=== PATIENT | female | born 1950 | race Caucasian/White ===

== ENCOUNTER 2016-12-25 07:30 | Inpatient (IN) | payer BC ==
--- NOTE | 2016-12-18 22:06 | HP ---
PREOPERATIVE HISTORY AND PHYSICAL: DATE OF SURGERY/ADMISSION: 12/25/16 DATE OF OFFICE VISIT: 12/17/16 ATTENDING SURGEON: Dr. Jaci Ibarra. PROCEDURE: Right total hip replacement. CHIEF COMPLAINT: Right hip pain. HISTORY OF PRESENT ILLNESS: Kiana Bartholomew is a 66-year-old female who has had longstanding history of right hip pain due to severe osteoarthritis of the right hip. She has tried conservative treatments including anti-inflammatories , cortisone injections, and physical therapy and has failed conservative treatment. She would like to proceed with total hip replacement with Dr. Ibarra. This is scheduled for 12/25/16. PAST MEDICAL HISTORY: Hypertension, hyperlipidemia, GERD, restless leg syndrome , fibromyalgia, diabetes type 2, which is diet controlled. PAST SURGICAL HISTORY: Right total knee replacement, appendectomy, hysterectomy , right carpal tunnel release, left bunionectomy, left trigger thumb release, left ring mass excision. CURRENT MEDICATIONS: 1. Advil. 2. Aspirin. 3. Lisinopril. 4. Omeprazole. 5. Ropinirole. 6. Tramadol. 7. Amoxicillin. ALLERGIES: DEMEROL, AUGMENTIN, and NITROGLYCERIN. FAMILY HISTORY: Cancer, heart disease, and diabetes. SOCIAL HISTORY: She works as a medical office receptionist assistant. She is . She smokes 1/2 pack per day, but is trying to quit. She drinks alcohol rarely and denies recreational drug use. REVIEW OF SYSTEMS: A 14-point review of systems was reviewed with the patient and was positive for high blood pressure, positive for GERD, positive for fibromyalgia and diabetes. Negative for known anesthesia problems, negative for history of DVT and negative for MRSA, hep C, and HIV. PHYSICAL EXAMINATION GENERAL: Well-developed, well-nourished 66-year-old female in no acute distress. VITAL SIGNS: Height is 50.5, weight 148 pounds, blood pressure is 122/79, respirations 14, temperature is 98, BMI of 40.8. HEENT: Normocephalic, atraumatic. NECK: Supple with no palpable lymph nodes. PULMONARY: Lungs clear to auscultation bilaterally. No wheezes, rales, or rhonchi. CARDIO: Regular rate and rhythm. S1, S2. No murmurs, rubs, or gallops. No edema. ABDOMEN: Soft, nontender, nondistended. Positive bowel sounds throughout. NEUROLOGICAL: Alert and oriented x3. Cranial nerves II through XII grossly intact. Sensation intact to light touch. MUSCULOSKELETAL: Right lower extremity: Skin is intact over the right knee and leg. There are no abrasions or open wounds. No point tenderness over the greater trochanter. No palpable mass. No lymph node. She has hip flexion from the 100 degrees to 5 degrees from neutral and has no external rotation even passively; 30 degrees of external rotation. Significant groin pain and lateral hip pain with rotation. Ankle dorsiflexion and plantar flexion 5/5 strength and 2+ palpable DP pulses. No hyperreflexia. STUDIES: X-rays were obtained, 11/17/16, which did show arthritis of the right hip. IMPRESSION: Right hip osteoarthritis. PLAN: The patient is scheduled to undergo a right total hip replacement on 08/[address] Ibarra. She is to return to the office in 10 to 14 days postop for followup and suture removal. A prescription for Percocet, Coumadin, and Colace were provided for postoperative pain management, postoperative DVT prophylaxis, and postoperative constipation. BILL RYAN [id number]/[facility] #: [id number] KATELYN
[~2016-12-25 07:30] MED LIST: Clindamycin 900 MG IVPREMIX(* 900 MG/50 ML SDV IV ONE; Famotidine IV* 10 MG/ML 2 ML (20 mg) IV ONE; Famotidine IV* 10 MG/ML 2 ML (20 mg) ONE; Levalbuterol 0.63MG/3ML NEB INH ONE; Levalbuterol 1.25MG/0.5ML NEB ONE; Metoclopramide TAB* 10 MG ONE; Metoclopramide TAB* 10 MG PO ONE
[2016-12-25] MEDS ORDERED: Phenylephrine INJ* 10 MG/ML 1 ML VIAL (10 MG) ONE (10:13)
[2016-12-25] MEDS ORDERED: Midazolam* 1 MG/ML 5 ML VIAL (5 MG) ONE (10:29)
[2016-12-25] MEDS ORDERED: KETAMINE HCL* 50 MG/ML 10 ML VIAL ONE (10:29)
[2016-12-25] MEDS ORDERED: Ondansetron INJ* 2 MG/ML VIAL ONE (10:29)
[2016-12-25] MEDS ORDERED: Propofol* 10 MG/ML 20 ML BTL IV PUSH ONE (10:29)
[2016-12-25] MEDS ORDERED: Dexamethasone IV* 4 MG/ML 1 ML (4 MG) ONE (10:29)
[2016-12-25] MEDS ORDERED: Bupivacaine 0.5% SDV PF* 30 ML VIAL ONE (10:29)
[2016-12-25] MEDS ORDERED: fentaNYL* 50 MCG/ML 2 ML VIAL (100 MCG VIAL) ONE (10:29)
[2016-12-25] MEDS ORDERED: Lidocaine 2% PF * 5 ML VIAL ONE (10:29)
[2016-12-25] MEDS ORDERED: Ketorolac INJ* 30 MG/ML 1 ML VIAL ONE (10:29)
[2016-12-25] MEDS ORDERED: Morphine PF AMP (0.5MG/ML)* 5 MG/10 ML AMP ONE (10:30)
[2016-12-25] MEDS ORDERED: fentaNYL* 50 MCG/ML 2 ML VIAL (100 MCG VIAL) IV PRN (11:07)
[2016-12-25] MEDS ORDERED: Phenylephrine INJ* 50 MG in NS 0.9% 250 ML* 245 ML IV PRN (11:07)
[2016-12-25] MEDS ORDERED: Ondansetron INJ* 2 MG/ML VIAL IV PRN ×2 (11:07→11:09)
[2016-12-25] MEDS ORDERED: EPHEDrine (Pressors)* 50 MG/ML VIAL IV PUSH PRN (11:09)
[2016-12-25] MEDS ORDERED: oxyCODONE/Acetamin 5/325 MG* TAB PO PRN ×2 (11:09)
[2016-12-25] MEDS ORDERED: Ketorolac INJ* 15 MG/ML 1 ML VIAL IV PRN (11:09)
[2016-12-25] MEDS ORDERED: diPHENhydraMINE IV* 50 MG/ML 1 ml VIAL (BENADRYL) IV PRN (11:09)
[2016-12-25] MEDS ORDERED: Lactated Ringers 500 ml BAG* 500 ML IV PRN (11:09)
[2016-12-25] MEDS ORDERED: Acetaminophen TAB* 325 MG PO PRN (11:10)
[2016-12-25] MEDS ORDERED: Morphine INJ* 4 MG/ML 1 ML SYRINGE IV PRN (11:10)
[2016-12-25] MEDS ORDERED: Bisacodyl SUPP* 10 MG SUPP PR PRN (11:10)
[2016-12-25] MEDS ORDERED: Polyethylene Glycol 3350* 17 GM PACKET PO PRN (11:10)
[2016-12-25] MEDS ORDERED: Naloxone* 0.4 MG/ML 1 ML VIAL IV PRN (11:15)
[2016-12-25] MEDS ORDERED: Albuterol HFA INHALER* 8 gm MDI INH PRN (11:16)
--- NOTE | 2016-12-25 11:56 | RAD ---
HISTORY: Right total hip replacement COMPARISONS: November 17, 2016 VIEWS: 1, intraoperative view of the pelvis during right hip arthroplasty, performed at 10:09 AM FINDINGS: Single portable intraoperative view of the pelvis during right hip arthroplasty. A right hip prosthesis is noted, with a temporary femoral sizing component. IMPRESSION: LIMITED PORTABLE INTRAOPERATIVE VIEW OF THE PELVIS DURING HIP ARTHROPLASTY
[2016-12-25] MEDS ORDERED: Ropivacaine* 300 MG in NS 0.9% 250 ML* 240 ML EPIDURAL SCH (12:00)
[2016-12-25] MEDS ORDERED: ceFAZolin VIAL(*) 1 GM in NS 0.9% 50 ML* 50 ML IVPB SCH (12:00)
--- NOTE | 2016-12-25 13:58 | RAD ---
Indication: Right hip total replacement. 2 views of the right hip and an AP view the pelvis demonstrates right hip replacement in satisfactory position. Sacroiliac joints and left hip joint is intact. IMPRESSION: Right hip replacement in satisfactory position.
[2016-12-25] MEDS ORDERED: Omeprazole CAP* 20 MG PO PRN (16:51)
[2016-12-25] MEDS ORDERED: Warfarin TAB(*) 6 MG PO ONE (17:00)
[2016-12-25] MEDS: Clindamycin 600 MG IVPREMIX(* 600 MG/50 ML SDV IV SCH (18:05)
[2016-12-25] MEDS: Docusate CAP* 100 MG PO SCH (19:56)
[2016-12-25] MEDS: Magnesium Hydroxide LIQ* 30 ML UDC PO SCH (19:57)
--- NOTE | 2016-12-25 23:24 | CONS ---
CONSULTATION REPORT: DATE OF ADMISSION: 12/25/16 DATE OF CONSULTATION: 12/25/16 PRIMARY CARE PROVIDER: Dr. Casey Cassidy. ATTENDING PHYSICIAN: Bartolo Huston MD (dictated by Christopher Issa NP) PHYSICIAN REQUESTING CONSULTATION: Jaci Ibarra MD REASON FOR CONSULTATION: Co-medical management in a patient with a history of hypertension, hyperlipidemia and diabetes mellitus. HISTORY OF PRESENT ILLNESS: Ms. Bartholomew is a 66-year-old female with a past medical history significant for hypertension, hyperlipidemia, GERD, restless leg syndrome, fibromyalgia and type 2 diabetes mellitus that is diet controlled who presents to the hospital with severe osteoarthritis and is status post an elective right total hip arthroplasty with Dr. Ibarra, today. The patient states that leading up to surgery, she has been in a good state of health with the exception of right hip pain. The patient also reports several weeks ago getting over an upper respiratory infection, which we completed a course of antibiotics for. The patient denies any fever, chills, chest pain, shortness of breath, urinary symptoms, nausea, vomiting, or diarrhea. Hospitalists were asked to assist with the management of this patient during her postoperative period. PAST MEDICAL HISTORY: 1. Hypertension. 2. Hyperlipidemia. 3. GERD. 4. Restless leg syndrome. 5. Fibromyalgia. 6. Diabetes mellitus type 2, diet controlled. 7. Diverticulosis. 8. Vitamin D deficiency. PAST SURGICAL HISTORY: 1. Status post right total knee arthroplasty. 2. Status post appendectomy. 3. Status post hysterectomy. 4. Status post right carpal tunnel release. 5. Status post left bunionectomy. 6. Status post left trigger thumb release. 7. Status post left ring finger mass excision. 8. Status post bilateral oophorectomy. HOME MEDICATIONS: Include: 1. Aspirin 81 mg oral daily, the patient stopped approximately 2 weeks ago. 2. Lisinopril 30 mg oral daily. 3. Omeprazole 20 mg oral twice daily as needed for indigestion. 4. Requip 1 mg oral daily at bedtime. 5. Tramadol 50 mg t.i.d. to 4 times a day as needed daily for pain. 6. Lunesta 1 mg oral daily at bedtime as needed for insomnia. 7. Albuterol HFA 1 to 2 puffs inhalation every 4 to 6 hours as needed for shortness of breath. 8. Vitamin D 1000 units oral daily. ALLERGIES: DEMEROL, causes itching. NITROGLYCERIN, causes facial swelling. AUGMENTIN causes GI upset. FAMILY HISTORY: The patient's father had a history of myocardial infarction x2 and lung cancer. The patient has no family history of diabetes mellitus. SOCIAL HISTORY: The patient is a current smoker, smoking less than a half a pack a day. She reports restarting smoking approximately 1 year ago. Prior to that, she had quit for 8 years and has a 86-oykh-znol 1 pack a day history. The patient rarely drinks alcohol. She denies recreational drug use. She works as a senior qa analyst and is . She lives with her , Truong Bartholomew , who will be her surrogate decision maker in the event that she is unable to make decisions for herself. REVIEW OF SYSTEMS: I performed a 14-point review of systems. All the pertinent positives and negatives are mentioned in the history of present illness. The remaining review of systems are negative. PHYSICAL EXAMINATION: Vital Signs: Temperature 98.1, heart rate 63, respiratory rate 16, O2 sat 97% on room air, blood pressure 127/60. Appearance : The patient is alert, pleasant, and appears to be in no acute distress. HEENT: Normocephalic, atraumatic. Pupils are equal and reactive to light. Extraocular movements are intact. Cardiovascular: Regular rate and rhythm. S1 , S2 are crisp. There are no murmurs, rubs, or gallops heard. Extremities: There is no lower extremity edema. DP and PT pulses are 2+ and symmetric. Respiratory: There is no accessory muscle use and the lungs are clear to auscultation bilateral. Abdomen is soft, nontender, and nondistended. There are bowel sounds present x4. Musculoskeletal: There is no clubbing or cyanosis noted. The patient exhibits good strength in all extremities. She is able to dorsi and plantarflex bilateral. Skin: There is a dressing on the patient's right hip that is clean, dry and intact. Neurological: Cranial nerves II through XII are grossly intact. The patient moves all extremities. Psychological: The patient is calm and cooperative. DIAGNOSTIC STUDIES/LABORATORY DATA: Preoperative data from 12/05/16: Sodium 143, potassium 4.4, chloride 104, CO2 29, BUN 16, creatinine 0.7, and glucose 151. Hemoglobin A1c 7.2. EKG shows a sinus rhythm with a rate of 76. Urinalysis from 12/12/16 is negative. A chest x-ray from 12/17/16 shows radiologist's impression: No active cardiopulmonary disease. 1. Pelvis x-ray from today, radiologist's impression: Limited portable intraoperative view of the pelvis during hip arthroplasty. 2. Hip and pelvis x-ray from today. Right hip replacement in satisfactory position. IMPRESSION: Ms. Bartholomew is a 66-year-old female with past medical history significant for hypertension, hyperlipidemia, gastroesophageal reflux disease, restless leg syndrome, fibromyalgia, type 2 diabetes mellitus, and severe osteoarthritis of the right hip who presented to the hospital today for an elective right total hip arthroplasty with Dr. Ibarra. Hospitalist were asked to co-manage this patient during her hospital stay. ASSESSMENT/PLAN: 1. Status post right total hip arthroplasty. Postop day. Management per Orthopedic Surgery. The patient currently has Duramorph spinal and an epidural infusing for pain management. Pain management will be per Anesthesia until those are discontinued and have worn off. Then pain management will be per Orthopedic Surgery. The patient's H and H will be trended. She will have physical therapy and occupational therapy. The patient will have her Bartlett catheter in place until her epidural is removed and then this should be removed. 2. Diabetes mellitus. The patient is diet controlled at home. She will be on a consistent carbohydrate diet. We will monitor fingersticks with meals and start lispro sliding scale if necessary. The patient had a hemoglobin A1c checked on 12/05/16, that was 7.2. 3. Hypertension. At this time, the patient's pressures have been in the 90s to one-teens, although the last one was 127. For now during the perioperative period, we will hold the patient's lisinopril and most likely resume in the morning if her blood pressure allows. 4. Hyperlipidemia. The patient is currently not on medications. She has tried several in the past and developed muscle cramping. I will defer this to her primary care provider to discuss with her and restart after surgery. 5. Restless leg syndrome. The patient continued on her home Requip. 6. Gastroesophageal reflux disease. The patient will be continued on omeprazole as needed. 7. Fibromyalgia. We will hold the patient's tramadol for now and allow pain management to be per Orthopedic Surgery. 8. Fluids, electrolytes, and nutrition. The patient will be on a consistent carbohydrate diet. 9. DVT prophylaxis. Management per Orthopedic Surgery. The patient will be on Lovenox bridged to warfarin. 10. Code status. Full code. 11. Disposition. Inpatient with disposition per Orthopedic Surgery. TIME SPENT: The time for this consultation was 60 minutes, and greater than half of that was spent with the patient discussing medications, past medical history, in the events leading to her arrival at the hospital today. The case has been reviewed with the attending, Dr. Huston, who agrees with the plan of care. Reviewed by CHRISTOPHER ISSA, MARYSE-C 12/26/16 [id number] CC: Dr. Cassidy; Jaci Ibarra MD * [id number]/[facility] #: [id number] MTDD
[2016-12-26] MEDS: Clindamycin 600 MG IVPREMIX(* 600 MG/50 ML SDV IV SCH ×2 (02:17→09:57)
[2016-12-26] MEDS ORDERED: oxyCODONE TAB* 5 MG TAB PO PRN (06:00)
[2016-12-26] MEDS ORDERED: oxyCODONE/Acetamin 5/325 MG* TAB PO PRN (06:00)
[2016-12-26] MEDS ORDERED: Ondansetron TAB* 4 MG PO PRN (06:00)
[2016-12-26] MEDS ORDERED: diPHENhydraMINE IV* 50 MG/ML 1 ml VIAL (BENADRYL) IV PRN (06:00)
[2016-12-26] MEDS ORDERED: Zolpidem TAB* 5 MG PO PRN (06:00)
[2016-12-26 06:25] LABS: Hematocrit 31 % (35-47); Hemoglobin 10.3 g/dl (12.0-16.0)
[2016-12-26 06:38] LABS: BUN/Creatinine Ratio 17.8 (8-20); Calcium 8.6 mg/dL (8.6-10.3); EGFR African American 102.6 (>60); EGFR Non-African American 79.8 (>60); Potassium 4.3 mmol/L (3.5-5.0)
--- NOTE | 2016-12-26 07:37 | PN ---
Progress Note - Progress Note SOAP: Subjective: Pt. is alert, pain is controlled, poor sleep last night. Objective: RLE - dressing c/d/i. thigh soft, distally min edema with +df/pf, full sens lt , 2+dp pulse. Vital Signs: Temp Pulse Resp BP Pulse Ox 98.1 F 70 20 103/56 100 12/26/16 04:20 12/26/16 04:20 12/26/16 04:20 12/26/16 04:20 12/26/16 04:20 Laboratory Results - last 24 hr 12/25/16 12/25/16 12/26/16 08:01 16:45 05:42 Hgb 10.3 L Hct 31 L INR (Anticoag Therapy) Sodium Potassium Chloride Carbon Dioxide Anion Gap BUN Creatinine Est GFR ( Amer) Est GFR (Non-Af Amer) BUN/Creatinine Ratio Glucose POC Glucose (mg/dL) 142 H 238 H Calcium 12/26/16 12/26/16 05:42 05:42 Hgb Hct INR (Anticoag Therapy) 1.17 H Sodium 137 Potassium 4.3 Chloride 106 Carbon Dioxide 27 Anion Gap 4 BUN 13 Creatinine 0.73 Est GFR ( Amer) 102.6 Est GFR (Non-Af Amer) 79.8 BUN/Creatinine Ratio 17.8 Glucose 177 H POC Glucose (mg/dL) Calcium 8.6 Assessment: 66 yo F pod 1 s/p RTHA Plan: wbat with post hip precautions 6 mg coumadin tonight with lovenox bridge today pt/ot plan d/c to home 12/27
[2016-12-26] MEDS: oxyCODONE/Acetamin 5/325 MG* TAB PO PRN ×4 (08:14→20:46)
[2016-12-26] MEDS ORDERED: Lisinopril TAB* 10 MG PO SCH (09:00)
[2016-12-26] MEDS: Vitamin THERAPEUTIC TAB PO SCH (09:22)
[2016-12-26] MEDS: Magnesium Hydroxide LIQ* 30 ML UDC PO SCH ×2 (09:22→20:44)
[2016-12-26] MEDS: Docusate CAP* 100 MG PO SCH ×2 (09:23→20:46)
--- NOTE | 2016-12-26 09:56 | OP ---
DATE OF OPERATION: 12/25/16 - ROOM #342 DATE OF : 50 SURGEON: Jaci Ibarra MD PERINATAL NURSE: BILL Meadows. Ms. Puri did help throughout the procedure with preparation of the leg, wound retraction, manipulation of the hip, and wound closure. ANESTHESIOLOGIST: Dr. Garza. ANESTHESIA: Spinal. PRE-OP DIAGNOSIS: Severe end-stage degenerative osteoarthritis of the right hip joint. POST-OP DIAGNOSIS: Severe end-stage degenerative osteoarthritis of the right hip joint. OPERATIVE PROCEDURE: Right total hip arthroplasty. INDICATIONS: Ms. Bartholomew is a 66-year-old female with one year of increasingly severe right hip pain. Radiographs showed advanced arthritis of the hip joint. She failed conservative treatment with anti-inflammatories, pain medications, physical therapy, and ambulatory assistive devices. Due to continued pain and decreased quality of life, the patient elected to undergo right total hip arthroplasty. Informed consent was obtained from the patient. She understood the risks of the surgery included, but were not limited to bleeding, infection, damage to nearby structures, continued pain, need for further surgery, intraoperative fracture, nerve palsy, hardware failure or loosening, dislocation , leg length discrepancy, stroke, heart attack, blood clot, and . She wished to proceed. COMPLICATIONS: None. ESTIMATED BLOOD LOSS: 300 cc. SPECIMEN: Femoral head and acetabular reaming sent to Pathology. HARDWARE USED: This is Shy uncemented total hip hardware. For the cup, a Trident hemispherical acetabular shell, 48D, one 16-mm and one 20-mm screw were used. For the insert, a 36D Trident X3 0-degree polyethylene insert. For the stem, an Accolade TMZF, size 2 with a 132-degree neck. For the head, a Biolox delta ceramic V40 femoral head 36, -5. INTRAOPERATIVE FINDINGS: Intraoperatively, the patient was noted to have a shallow dysplastic acetabulum with extreme loss of cartilage. Femoral head and neck also had complete loss of cartilage with osteophyte formation. DESCRIPTION OF PROCEDURE: Ms. Bartholomew was identified in the preanesthesia unit. Her right lower extremity was marked as the correct operative side. Informed consent was signed and placed in the chart. The patient was taken to the operating room and placed under spinal anesthesia without difficulty. A Bartlett catheter was placed. The patient was placed in the left lateral decubitus position on the peg board with all bony prominences well padded. Right lower extremity was prepped and draped in the usual sterile fashion. Preop time-out was made to correctly identify the patient's side and site. Appropriate perioperative antibiotics were given within 1 hour of incision. A 12-cm posterior hip incision was made with a 10 blade and carried down to the lateral fascial layer. The lateral fascial layer was incised in line with the skin incision. A Charnley retractor was placed. The piriformis and conjoint tendons were identified. These were elevated off the posterolateral femur and tagged with two #5 Ethibond's. Next, electrocautery was used to make a standard posterolateral capsular flap and this was tagged with two #5 Ethibond' s. The hip was carefully dislocated. Lesser troch to the center of the femoral head measured 45 mm. Oscillating saw was used to make the appropriate femoral neck cut. The femoral head was sent to Pathology. The femur was carefully retracted anteriorly. After appropriate placement of retractor, the acetabulum was easily visualized. A long-handled knife was used to remove any remaining labrum from around the acetabular rim. Complete loss of cartilage was noted with osteophyte formation. The acetabulum was sequentially reamed up to a size 47. A good bleeding bone bed was obtained. The acetabulum was noted to be shallow and dysplastic. A 48D Trident hemispherical shell was chosen and impacted into the acetabulum. Excellent stability was obtained. Appropriate abduction angle and anteversion were noted. One 16-mm screw and one 20-mm screw were placed in the superior posterior quadrant for added stability. A 36D Trident X3 0-degree polyethylene liner was chosen. This was impacted into the acetabulum without difficulty. Stability of the liner was checked and rechecked and noted to be stable. Next, attention was turned to preparation of the femur. A canal finder was used to enter the proximal femur. The proximal femur was sequentially broached up to a size 2. The trial had good stability as well as anteversion. A 132- neck trial was chosen with a 36 +0 femoral head trial. Lesser troch to the center of the femoral head measured 52 mm. Therefore, a -5 femoral head was chosen. This had approximately 46 mm lesser troch to the center of the femoral head measurement. The hip was carefully reduced and taken through a range of motion. The hip was stable in all positions. Leg lengths were deemed to be appropriate. There was good soft tissue tension. The hip was carefully dislocated. All trials were carefully removed. Final implant chosen was a size 2 Accolade TMZF with a 132-degree neck. This was impacted into the femur without difficulty. Good stability was obtained. A 36 -5 ceramic V40 Biolox delta femoral head was chosen as the final implant. This was impacted on to the femoral neck without difficulty. Lesser troch to center of the femoral head measurement was approximately 47 mm. The hip was reduced and taken through a range of motion. The hip was stable in all positions. There was good soft tissue tension. The hip was copiously irrigated with sterile saline. Previously tagged tendons and capsule were reapproximated to the posterolateral femur through 2 trochanteric drill holes. The lateral fascial layer was closed using interrupted #1 Vicryl's. The rest of the incision was closed in a layered fashion using 0 and 2-0 Vicryl's. Skin was closed using running 3-0 Monocryl and Dermabond. Sterile Adaptic, 4x4s, and paper tapes were placed over this. The patient's anesthesia was reversed without difficulty. She was taken to the PACU in stable condition. Intended weight bearing will be weightbearing as tolerated with posterior hip precautions. Intended DVT prophylaxis will be Coumadin with a Lovenox bridge. [id number]/[facility] #: [id number] KATELYN
[2016-12-26] MEDS: Enoxaparin(*) 30 MG/0.3 ML SYR SUBCUT SCH (12:24)
[2016-12-26] MEDS: Morphine INJ* 4 MG/ML 1 ML SYRINGE IV PRN (13:42)
[2016-12-26] MEDS: Ondansetron INJ* 2 MG/ML VIAL IV PRN (13:45)
--- NOTE | 2016-12-26 15:22 | PN ---
Subjective Date of Service: 12/26/16 Interval History: Patient seen and examined at bedside. Pt states that she feels well with the exception of pain in her right hip. Denies fever, chills, shortness of breath, chest discomfort, N/V/D. Pt states that she is urinating without difficulty since urinary catheter was removed. Pt states that she had a small BM this morning, but continues to feel "gassy". Family History: Unchanged from Admission Social History: Unchanged from Admission Past Medical History: Unchanged from Admission Objective Active Medications: Acetaminophen (Tylenol Tab*) 650 mg PO Q4H PRN Reason: pain, fever Albuterol (Ventolin Hfa Inhaler*) 1 puff INH BID PRN Reason: SOB/WHEEZING Bisacodyl (Dulcolax Supp*) 10 mg ND DAILY PRN Reason: constipation Diphenhydramine HCl (Benadryl Iv*) 12.5 mg IV Q6H PRN Reason: PRURITIS Docusate Sodium (Colace Cap*) 100 mg PO BID RAMIN Enoxaparin Sodium (Lovenox(*)) 30 mg SUBCUT Q24H RAMIN Lactated Ringer's (Lactated Ringers 1000 Ml Bag*) 1,000 mls @ 100 mls/hr IV PER RATE RAMIN Lactulose (Lactulose*) 30 ml PO Q6H PRN Reason: constipation Magnesium Hydroxide (Milk Of Magnesia Liq*) 30 ml PO BID RAMIN Morphine Sulfate (Morphine Inj (Syringe)*) 4 mg IV Q2H PRN Reason: PAIN Multivitamins (Theragran Tab*) 1 tab PO DAILY RAMIN Omeprazole (Prilosec Cap*) 20 mg PO BID PRN Reason: INDIGESTION Ondansetron HCl (Zofran Inj*) 4 mg IV Q6H PRN Reason: nausea Ondansetron HCl (Zofran Tab*) 4 mg PO Q6H PRN Reason: NAUSEA Oxycodone HCl (Roxycodone Tab*) 10 mg PO Q4H PRN Reason: PAIN - MODERATE TO SEVERE Oxycodone/Acetaminophen (Percocet 5/325 Tab*) 1 tab PO Q4H PRN Reason: PAIN - MILD Oxycodone/Acetaminophen (Percocet 5/325 Tab*) 2 tab PO Q4H PRN Reason: PAIN - MODERATE Pharmacy Profile Note (Coumadin Daily Reminder*) 1 note FOLLOW UP [facility] Polyethylene Glycol/Electrolytes (Miralax*) 17 gm PO DAILY PRN Reason: Constipation Warfarin Sodium (Coumadin Tab(*)) 6 mg PO ONCE@[facility] Stop: 12/26/16 17:01 Zolpidem Tartrate (Ambien Tab*) 5 mg PO QPM PRN; Protocol Reason: INSOMNIA Vital Signs 12/25/16 12/25/16 12/25/16 15:27 15:48 16:10 Temperature 98.1 F Pulse Rate 63 Respiratory 18 17 16 Rate Blood Pressure 127/60 (mmHg) O2 Sat by Pulse 97 Oximetry 12/25/16 12/25/16 12/25/16 16:27 17:01 19:09 Temperature 98.8 F 97.4 F Pulse Rate 69 72 Respiratory 16 18 16 Rate Blood Pressure 132/61 93/50 (mmHg) O2 Sat by Pulse 98 94 Oximetry 12/25/16 12/25/16 12/25/16 20:15 21:06 22:05 Temperature 98.0 F 98.3 F Pulse Rate 68 68 Respiratory 18 16 18 Rate Blood Pressure 105/54 101/54 (mmHg) O2 Sat by Pulse 97 94 Oximetry 12/25/16 12/26/16 12/26/16 23:04 00:00 00:10 Temperature 97.8 F Pulse Rate 71 Respiratory 18 18 Rate Blood Pressure 101/49 (mmHg) O2 Sat by Pulse 98 98 Oximetry 12/26/16 12/26/16 12/26/16 01:00 03:00 04:20 Temperature 98.1 F Pulse Rate 70 Respiratory 18 20 20 Rate Blood Pressure 103/56 (mmHg) O2 Sat by Pulse 100 Oximetry 12/26/16 12/26/16 12/26/16 07:43 08:00 08:14 Temperature 97.7 F Pulse Rate 64 Respiratory 15 16 18 Rate Blood Pressure 104/55 (mmHg) O2 Sat by Pulse 98 Oximetry 12/26/16 12/26/16 12/26/16 10:14 11:18 12:23 Temperature 97.9 F Pulse Rate 65 Respiratory 18 16 18 Rate Blood Pressure 108/53 (mmHg) O2 Sat by Pulse 100 Oximetry Oxygen Devices in Use Now: None Appearance: NAD, laying in bed Eyes: No Scleral Icterus Respiratory: Symmetrical Chest Expansion and Respiratory Effort, Clear to Auscultation Cardiovascular: NL Sounds; No Murmurs; No JVD, RRR Abdominal: NL Sounds; No Tenderness; No Distention Extremities: No Edema Skin: No Rash or Ulcers, - - Dressing to right hip clean, dry and intact Neurological: Alert and Oriented x 3, NL Muscle Strength and Tone Lines/Tubes/Other Access: Clean, Dry and Intact Peripheral IV - site benign Nutrition: Taking PO's Result Diagrams: 12/26/16 05:42 12/26/16 05:42 Assess/Plan/Problems-Billing Assessment: Ms. Bartholomew is a 66 yo female with PMH significant for HTN, HLD, GERD, RLS, fibromyalgia, DM, and severe osteoarthritis of the right hip who presented to the hospital for an elective right total hip arthroplasty with Dr. Ibarra on . - Patient Problems (1) Status post total replacement of right hip Code(s): Z96.641 - PRESENCE OF RIGHT ARTIFICIAL HIP JOINT SNOMED Code(s): 329179812608 Comment: - POD #1 - Management per Ortho - Continue PT/OT - Continue pain management and bowel regime - Trend (2) History of hypertension Code(s): Z86.79 - PERSONAL HISTORY OF OTHER DISEASES OF THE CIRCULATORY SYSTEM SNOMED Code(s): 973811416 Comment: - BP continues to be soft - Continue to hold lisinopril (3) GERD (gastroesophageal reflux disease) Code(s): K21.9 - GASTRO-ESOPHAGEAL REFLUX DISEASE WITHOUT ESOPHAGITIS SNOMED Code(s): 771010050 Comment: - Continue PRN omeprazole (4) Fibromyalgia Code(s): M79.7 - FIBROMYALGIA SNOMED Code(s): 390572713 Comment: - Pain management per Ortho (5) History of restless legs syndrome Code(s): Z86.69 - PERSONAL HISTORY OF DIS OF THE NERVOUS SYS AND SENSE ORGANS SNOMED Code(s): 393715385 Comment: - Continue Requip (6) Hx of diabetes mellitus Code(s): Z86.39 - PERSONAL HISTORY OF ENDO, NUTRITIONAL AND METABOLIC DISEASE SNOMED Code(s): 584311063 Comment: - Glucose 130-230's - Pt is diet controlled at home - Will start Lispro SS if evening glucose is high (7) DVT prophylaxis Code(s): WKU3476 - SNOMED Code(s): 763737948 Comment: - Lovenox bridge to warfarin per ortho (8) Full code status Code(s): Z78.9 - OTHER SPECIFIED HEALTH STATUS SNOMED Code(s): 999304753 Status and Disposition: Inpatient. Disposition per Orthopedics. Possible discharge to home in the AM.
[2016-12-26] MEDS ORDERED: Warfarin TAB(*) 6 MG PO SCH (17:00)
[2016-12-27] MEDS: oxyCODONE/Acetamin 5/325 MG* TAB PO PRN ×2 (00:58→08:52)
[2016-12-27 06:37] LABS: Hematocrit 29 % (35-47); Hemoglobin 9.8 g/dl (12.0-16.0); Mean Platelet Volume 9 um3 (7.4-10.4)
--- NOTE | 2016-12-27 07:45 | PN ---
Subjective Date of Service: 12/27/16 Interval History: Patient seen and examined at bedside. Pt states that she is feeling well this morning and her pain is controlled. Denies fever, chills, shortness of breath, chest discomfort, N/V/D. Family History: Unchanged from Admission Social History: Unchanged from Admission Past Medical History: Unchanged from Admission Objective Active Medications: Acetaminophen (Tylenol Tab*) 650 mg PO Q4H PRN Reason: pain, fever Albuterol (Ventolin Hfa Inhaler*) 1 puff INH BID PRN Reason: SOB/WHEEZING Bisacodyl (Dulcolax Supp*) 10 mg WA DAILY PRN Reason: constipation Diphenhydramine HCl (Benadryl Iv*) 12.5 mg IV Q6H PRN Reason: PRURITIS Docusate Sodium (Colace Cap*) 100 mg PO BID RAMIN Enoxaparin Sodium (Lovenox(*)) 30 mg SUBCUT Q24H RAMIN Lactated Ringer's (Lactated Ringers 1000 Ml Bag*) 1,000 mls @ 100 mls/hr IV PER RATE RAMIN Lactulose (Lactulose*) 30 ml PO Q6H PRN Reason: constipation Magnesium Hydroxide (Milk Of Magnesia Liq*) 30 ml PO BID RAMIN Morphine Sulfate (Morphine Inj (Syringe)*) 4 mg IV Q2H PRN Reason: PAIN Multivitamins (Theragran Tab*) 1 tab PO DAILY RAMIN Omeprazole (Prilosec Cap*) 20 mg PO BID PRN Reason: INDIGESTION Ondansetron HCl (Zofran Inj*) 4 mg IV Q6H PRN Reason: nausea Ondansetron HCl (Zofran Tab*) 4 mg PO Q6H PRN Reason: NAUSEA Oxycodone HCl (Roxycodone Tab*) 10 mg PO Q4H PRN Reason: PAIN - MODERATE TO SEVERE Oxycodone/Acetaminophen (Percocet 5/325 Tab*) 1 tab PO Q4H PRN Reason: PAIN - MILD Oxycodone/Acetaminophen (Percocet 5/325 Tab*) 2 tab PO Q4H PRN Reason: PAIN - MODERATE Pharmacy Profile Note (Coumadin Daily Reminder*) 1 note FOLLOW UP [facility]00 [facility] Polyethylene Glycol/Electrolytes (Miralax*) 17 gm PO DAILY PRN Reason: Constipation Zolpidem Tartrate (Ambien Tab*) 5 mg PO QPM PRN; Protocol Reason: INSOMNIA Vital Signs 12/26/16 12/26/16 12/26/16 07:43 08:00 08:14 Temperature 97.7 F Pulse Rate 64 Respiratory 15 16 18 Rate Blood Pressure 104/55 (mmHg) O2 Sat by Pulse 98 Oximetry 12/26/16 12/26/16 12/26/16 10:14 11:18 12:23 Temperature 97.9 F Pulse Rate 65 Respiratory 18 16 18 Rate Blood Pressure 108/53 (mmHg) O2 Sat by Pulse 100 Oximetry 12/26/16 12/26/16 12/26/16 15:18 16:39 18:39 Temperature 98.4 F Pulse Rate 66 Respiratory 16 18 18 Rate Blood Pressure 117/57 (mmHg) O2 Sat by Pulse 98 Oximetry 12/26/16 12/26/16 12/26/16 19:46 20:00 20:45 Temperature 98.1 F Pulse Rate 66 Respiratory 16 18 20 Rate Blood Pressure 147/64 (mmHg) O2 Sat by Pulse 100 Oximetry 12/26/16 12/26/16 12/26/16 20:46 22:46 23:29 Temperature 98.2 F Pulse Rate 83 Respiratory 20 18 16 Rate Blood Pressure 142/54 (mmHg) O2 Sat by Pulse 99 Oximetry 12/27/16 12/27/16 00:58 03:25 Temperature 99.5 F Pulse Rate 82 Respiratory 20 16 Rate Blood Pressure 107/49 (mmHg) O2 Sat by Pulse 96 Oximetry Oxygen Devices in Use Now: None Appearance: NAD, sitting up in bed Respiratory: Symmetrical Chest Expansion and Respiratory Effort, Clear to Auscultation Cardiovascular: NL Sounds; No Murmurs; No JVD, RRR Abdominal: NL Sounds; No Tenderness; No Distention Extremities: No Edema Skin: No Rash or Ulcers, - - Dressing to right hip clean, dry and intact. Neurological: Alert and Oriented x 3, NL Muscle Strength and Tone Lines/Tubes/Other Access: Clean, Dry and Intact Peripheral IV - site benign Nutrition: Taking PO's Result Diagrams: 12/27/16 06:18 12/26/16 05:42 Assess/Plan/Problems-Billing Assessment: Ms. Bartholomew is a 66 yo female with PMH significant for HTN, HLD, GERD, RLS, fibromyalgia, DM, and severe osteoarthritis of the right hip who presented to the hospital for an elective right total hip arthroplasty with Dr. Ibarra on . - Patient Problems (1) Status post total replacement of right hip Code(s): Z96.641 - PRESENCE OF RIGHT ARTIFICIAL HIP JOINT SNOMED Code(s): 343564239338 Comment: - POD #2 - Management per Ortho - HH stable - Continue PT/OT - Continue pain management and bowel regime (2) History of hypertension Code(s): Z86.79 - PERSONAL HISTORY OF OTHER DISEASES OF THE CIRCULATORY SYSTEM SNOMED Code(s): 661734889 Comment: - BP continues to be soft at times - Continue to hold lisinopril, will resume when able (3) GERD (gastroesophageal reflux disease) Code(s): K21.9 - GASTRO-ESOPHAGEAL REFLUX DISEASE WITHOUT ESOPHAGITIS SNOMED Code(s): 074361049 Comment: - Continue PRN omeprazole (4) Fibromyalgia Code(s): M79.7 - FIBROMYALGIA SNOMED Code(s): 067782200 Comment: - Pain management per Ortho (5) History of restless legs syndrome Code(s): Z86.69 - PERSONAL HISTORY OF DIS OF THE NERVOUS SYS AND SENSE ORGANS SNOMED Code(s): 125608444 Comment: - Continue Requip (6) Hx of diabetes mellitus Code(s): Z86.39 - PERSONAL HISTORY OF ENDO, NUTRITIONAL AND METABOLIC DISEASE SNOMED Code(s): 342522812 Comment: - Glucose 130-230's - Pt is diet controlled at home (7) DVT prophylaxis Code(s): LRZ3631 - SNOMED Code(s): 840261255 Comment: - Lovenox bridge to warfarin per ortho (8) Full code status Code(s): Z78.9 - OTHER SPECIFIED HEALTH STATUS SNOMED Code(s): 105622807 Status and Disposition: Inpatient. Disposition per Orthopedics. Possible discharge to home today.
--- NOTE | 2016-12-27 08:34 | PN ---
Progress Note - Progress Note SOAP: Subjective: Pt. is alert, pain controlled. Objective: RLE - dressing changed, inc c/d/i. distally nvi. Vital Signs: Temp Pulse Resp BP Pulse Ox 99.5 F 82 16 107/49 96 12/27/16 03:25 12/27/16 03:25 12/27/16 03:25 12/27/16 03:25 12/27/16 03:25 Laboratory Results - last 24 hr 12/26/16 12/26/16 12/26/16 08:07 12:01 17:41 Hgb Hct Plt Count MPV INR (Anticoag Therapy) POC Glucose (mg/dL) 139 H 233 H 180 H 12/27/16 12/27/16 06:18 06:18 Hgb 9.8 L Hct 29 L Plt Count 143 L MPV 9 INR (Anticoag Therapy) 1.83 H POC Glucose (mg/dL) Assessment: 66 yo F pod 2 s/p RTHA Plan: wbat with post hip precautions pt/ot hold coumadin tonight, 4 mg tomorrow, recheck on thursday plan d/c to home today.
[2016-12-27] MEDS: Vitamin THERAPEUTIC TAB PO SCH (08:52)
[2016-12-27] MEDS: Docusate CAP* 100 MG PO SCH (08:52)
[2016-12-27] MEDS: Morphine INJ* 4 MG/ML 1 ML SYRINGE IV PRN (08:58)
[2016-12-27] MEDS: Ondansetron INJ* 2 MG/ML VIAL IV PRN (08:58)
[2016-12-27] MEDS: Magnesium Hydroxide LIQ* 30 ML UDC PO SCH (09:50)
[2016-12-27 11:36] VITALS: BP 122/59
[2016-12-27] MEDS: Enoxaparin(*) 30 MG/0.3 ML SYR SUBCUT SCH (12:29)
--- NOTE | 2016-12-28 04:32 | DS ---
DISCHARGE SUMMARY: DATE OF ADMISSION: 12/25/16 DATE OF DISCHARGE: 12/27/16 PROVIDER: Dr. Jaci Ibarra. (DICTATED BY BILL BENITES) ADMITTING DIAGNOSIS: Status post right total hip arthroplasty for treatment of severe right hip osteoarthritis. SECONDARY DIAGNOSES: 1. Hypertension. 2. Hyperlipidemia. 3. Gastroesophageal reflux disease. 4. Restless leg syndrome. 5. Fibromyalgia. 6. Diabetes type 2, which is diet controlled. CONSULTATIONS: Physical Therapy, Occupational Therapy, and Medicine. HISTORY OF PRESENT ILLNESS: Ms. Bartholomew is a 66-year-old female who presents to the clinic for ongoing right hip pain due to severe osteoarthritis. She has failed conservative treatment to including anti-inflammatories, cortisone injections, and physical therapy, therefore agreed to undergo a right total hip arthroplasty with Dr. Ibarra on 12/25/16. HOSPITAL COURSE: Ms. Bartholomew was admitted to [facility] on 12/25/16. She underwent a right total hip arthroplasty. Postoperatively, she recovered on the short-stay surgical unit. Postop day 1, the [place] was removed and she was able to urinate on her own. She was advanced to a regular diet without difficulty and pain was controlled with oral Percocet. She was restarted on home medications. Labs and vitals remained stable. She was able to weight bear as tolerated on the right lower extremity. She advanced appropriately with physical therapy and occupational therapy. DVT prophylaxis was managed with Lovenox and Coumadin until she reached therapeutic INR. H and H on 12/26/16 was 10.3 and 31. H and H on 12/27/16 was 9.8 and 29. INR on 12/26/16 was 1.17 and INR on 12/27/16 was 1.83. The patient took 6 mg of Coumadin on 12/25/16 and 6 mg on 12/26/16. By postop day 2, she was orthopedically and medically stable for discharge to home with VNS services. PHYSICAL EXAMINATION: General: A 66-year-old well-developed, well-nourished female in no acute distress. Alert and oriented x3. Appropriate mood and affect. Vital Signs: Temp 99.5, pulse 82, respiratory rate 16, blood pressure 107/49, pulse ox 96. Right lower extremity, dressing was changed. The incision was clean, dry, and intact. Able to plantar flex and dorsiflex at the ankle. Calf was soft and nontender, +2 dorsalis pedis pulse. Sensation is intact to light touch distally. DISCHARGE CONDITION: Stable. DISCHARGE MEDICATIONS: Home medications continued on discharge to include: 1. Tramadol 50 mg by mouth 3 times a day as needed for pain. The patient knows not to take this while on Percocet. 2. Lisinopril 30 mg by mouth every morning. 3. Albuterol 108 mcg inhalation twice a day as needed. 4. Lunesta 1 mg by mouth every night as needed. 5. Vitamin D 1000 units by mouth daily. 6. Requip 0.5 mg tabs 1 mg by mouth every evening. 7. Ibuprofen 200 mg-400 mg by mouth as needed. The patient knows not to take this with Coumadin. 8. Omeprazole 20 mg by mouth twice a day as needed. New medications on discharge to include: 1. Colace 100 mg by mouth 2 to 3 times a day for constipation. 2. Warfarin 2 mg by mouth daily instructed by physician. 3. Percocet 5/325 one to two by mouth every 4 to 6 hours as needed for pain. DISCHARGE INSTRUCTIONS: The patient is weightbearing as tolerated on the right lower extremity. She will continue physical therapy at home. She will continue posterior hip precautions. It is okay for her to shower 3 days after surgery. No swimming, bathing, or submerging the wound in water. Redress with gauze and tape. She is to call the orthopedic office with increased drainage, redness, increased pain, or fever greater than 101.5. She is to go to the ER with chest pain or shortness of breath. Diet is a regular diet with increased fluids and fiber to prevent constipation. Continue Colace for constipation prevention. Call the office if no bowel movement within 48 hours. Continue Percocet as needed for pain. Continue Coumadin for DVT prophylaxis. VNS to do wound checks and blood draws on Mondays and . Coumadin dosing on 12/27, hold Coumadin dosing on 12/28/16, 4 mg. The patient was instructed not to take naproxen or ibuprofen while on the Coumadin and to have caution while taking Percocet and Tylenol together. The patient will require antibiotics prior to any dental work. She will follow up with Dr. Ibarra 10 to 14 days after surgery for followup and x-rays. BILL BENITES [id number]/[facility] #: [id number] [facility]ITALAnitra
== END 2016-12-27 13:25 | disposition home or self-care (01) | DRG 301 ==
LOC: AA 07:36 → SSU 15:10
PROVIDERS: ADMIT Orthopaedic Surgery Adult Reconstructive Orthopaedic Surgery; ATTEND Orthopaedic Surgery Adult Reconstructive Orthopaedic Surgery
PROC: 0SR904Z Replacement of Right Hip Joint with Ceramic on Polyethylene Synthetic Substitute, Open Approach (ICD-10-PCS; principal; 2016-12-25 09:45)
DX: M16.11 Unilateral primary osteoarthritis, right hip (principal); K76.0 Fatty (change of) liver, not elsewhere classified; I10 Essential (primary) hypertension; E78.5 Hyperlipidemia, unspecified; K21.9 Gastro-esophageal reflux disease without esophagitis; G25.81 Restless legs syndrome; M79.7 Fibromyalgia; E11.9 Type 2 diabetes mellitus without complications; Z79.01 Long term (current) use of anticoagulants; Z88.8 Allergy status to other drugs, medicaments and biological substances; Z82.49 Family history of ischemic heart disease and other diseases of the circulatory system; Z83.3 Family history of diabetes mellitus; Z96.651 Presence of right artificial knee joint; Z80.1 Family history of malignant neoplasm of trachea, bronchus and lung; F17.200 Nicotine dependence, unspecified, uncomplicated; E55.9 Vitamin D deficiency, unspecified; M50.90 Cervical disc disorder, unspecified, unspecified cervical region; M51.9 Unspecified thoracic, thoracolumbar and lumbosacral intervertebral disc disorder; J45.909 Unspecified asthma, uncomplicated; M25.751 Osteophyte, right hip
CPT/HCPCS: 36415; 62323; 72170; 80048; 85014; 85018; 85049; 85610; A9270-GY; C1713; C1776; J1100; J1200; J1650; J1885; J2250; J2270; J2405; J2704; J2795; J3010

== ENCOUNTER 2017-09-02 16:43 | Emergency (ER) | payer BC ==
[2017-09-02 17:26] VITALS: BP 162/81
[2017-09-02] MEDS ORDERED: metroNIDAZOLE TAB* 250 MG PO ONE (17:50)
[2017-09-02] MEDS ORDERED: Ciprofloxacin TAB* 500 MG PO ONE (17:50)
--- NOTE | 2017-09-02 17:51 | UC ---
Abdominal Pain Female HPI - HPI Summary HPI Summary: left lower abd pain with diarrhea feels past episodes of diverticulitis, no fever or vomiting - History of Current Complaint Chief Complaint: UCAbdominalPain Stated Complaint: LOW ABD PAIN. HX DIVERTICULOSIS Time Seen by Provider: 09/02/17 17:43 Hx Obtained From: Patient Hx Last Menstrual Period: in 30s ?: No Onset/Duration: Sudden Onset, Lasting Days - 1, Still Present Timing: Constant Severity Initially: Mild Severity Currently: Mild Pain Intensity: 2 Pain Scale Used: 0-10 Numeric Location: Discrete At: LLQ Radiates: No Character: Aching, Dull Aggravating Factor(s): Nothing Alleviating Factor(s): Nothing Associated Signs and Symptoms: Positive: Diarrhea. Negative: Blood in Stool, Urinary Symptoms, Decreased Appetite Allergies/Adverse Reactions: Allergies Allergy/AdvReac Type Severity Reaction Status Date / Time MS Meperidine Allergy Itching Verified 09/02/17 17:26 [From Demerol HCl] MS Nitroglycerin Allergy Swelling Verified 09/02/17 17:26 [Nitroglycerin] Of Face,Lips,& Throat MS Erythromycin AdvReac Intermediate Nausea And Verified 09/02/17 17:26 [Erythromycin] Vomiting Home Medications: Home Medications Cholesterol Med/Not A Statin 1 tab BEDTIME 09/02/17 [History] PMH/Surg Hx/FS Hx/Imm Hx Previously Healthy: No - RLS Cardiovascular History: Hypertension GI/ History: Gastroesophageal Reflux - Surgical History Surgical History: Yes Surgery Procedure, Year, and Place: hysterectomy [id number]. carpel tunnel surgery in R wrist 1994, appendectomy 1979,. bunionectomy [place] LEFT FOOT [place]. RIGHT KNEE REPLACEMENT. left thumb trigger finger releasE AND glumose tumor removed LEFT ring finger 2009-[facility] [place]. right total knee replacement 12/26/2014. right hip replacement - Family History Known Family History: Positive: Cardiac Disease, Diabetes - Social History Occupation: Employed Full-time Lives: With Family Alcohol Use: Rare Alcohol Amount: 3 per year Substance Use Type: None Smoking Status (MU): Light Every Day Tobacco Smoker Amount Used/How Often: 5-6 CIG DAILY Have You Smoked in the Last Year: Yes When Did the Patient Quit Smoking/Using Tobacco: QUIT FOR 10 YEARS AND RECENTLY STARTED - Immunization History Most Recent Influenza Vaccination: [id number] Most Recent Tetanus Shot: 2011 Most Recent Pneumonia Vaccination: 3 YEARS AGO Review of Systems Constitutional: Negative Skin: Negative Eyes: Negative ENT: Negative Respiratory: Negative Cardiovascular: Negative Gastrointestinal: Abdominal Pain, Diarrhea Genitourinary: Negative Motor: Negative Neurovascular: Negative Musculoskeletal: Negative Neurological: Negative Psychological: Negative Is Patient Immunocompromised?: No All Other Systems Reviewed And Are Negative: Yes Physical Exam Triage Information Reviewed: Yes Appearance: Well-Appearing, No Pain Distress, Well-Nourished Vital Signs: Initial Vital Signs Temp 98.0 F 09/02/17 17:21 Pulse 71 09/02/17 17:21 Resp 16 09/02/17 17:21 BP 162/81 09/02/17 17:21 Pulse Ox 98 09/02/17 17:21 Vital Signs Reviewed: Yes Eye Exam: Normal Eyes: Positive: Conjunctiva Clear ENT Exam: Normal ENT: Positive: Normal ENT inspection, Hearing grossly normal. Negative: Trismus , Muffled voice, Hoarse voice Dental Exam: Normal Neck exam: Normal Neck: Positive: Supple, Nontender Respiratory Exam: Normal Respiratory: Positive: Chest non-tender, No respiratory distress, No accessory muscle use Cardiovascular Exam: Normal Cardiovascular: Positive: RRR, Pulses Normal, Brisk Capillary Refill Abdominal Exam: Normal Abdomen Description: Positive: No Organomegaly, Soft, Other: - llq tenderness. Negative: CVA Tenderness (R), CVA Tenderness (L), Distended, Guarding, Peritoneal Signs Bowel Sounds: Positive: Present Musculoskeletal Exam: Normal Musculoskeletal: Positive: Strength Intact, ROM Intact, No Edema Neurological Exam: Normal Neurological: Positive: Alert, Muscle Tone Normal Psychological Exam: Normal Skin Exam: Normal Abd Pain Female Course/Dx - Course Course Of Treatment: clear liquid/lite meals-cipro/flagyl follow with pcp - Differential Dx/Diagnosis Provider Diagnoses: Diverticulitis Discharge - Discharge Plan Condition: Stable Disposition: HOME Prescriptions: Ciprofloxacin TAB* [Cipro 500 MG TAB*] 500 mg PO BID #13 tab metroNIDAZOLE [Flagyl 500 MG TAB] 500 mg PO TID #20 tab Patient Education Materials: Diverticulitis (ED), Diverticulitis Diet (ED), Hypertension (ED) Referrals: Casey Baum MD [Primary Care Provider] - 1 Week
== END 2017-09-02 18:13 | disposition home or self-care (01) ==
LOC: UCCORT 16:43
DX: K57.92 Diverticulitis of intestine, part unspecified, without perforation or abscess without bleeding (principal); R19.7 Diarrhea, unspecified; G25.81 Restless legs syndrome; I10 Essential (primary) hypertension; K21.9 Gastro-esophageal reflux disease without esophagitis; Z90.710 Acquired absence of both cervix and uterus; Z96.651 Presence of right artificial knee joint; Z96.641 Presence of right artificial hip joint; Z88.1 Allergy status to other antibiotic agents; Z88.5 Allergy status to narcotic agent; Z88.8 Allergy status to other drugs, medicaments and biological substances; F17.210 Nicotine dependence, cigarettes, uncomplicated
CPT/HCPCS: 99212; A9270-GY; G0463

== ENCOUNTER 2018-02-10 15:15 | Emergency (ER) | payer BC ==
[2018-02-10 15:44] VITALS: BP 132/77
--- NOTE | 2018-02-10 16:23 | UC ---
Throat Pain/Nasal Casey HPI - HPI Summary HPI Summary: Pt c/o sore throat, PND and productive cough X 3 days. - History of Current Complaint Chief Complaint: UCGeneralIllness Stated Complaint: SORE THROAT,CONGESTION Time Seen by Provider: 02/10/18 16:15 Hx Obtained From: Patient Hx Last Menstrual Period: in 30s ?: No Onset/Duration: Sudden Onset, Lasting Days, Still Present Severity: Mild Pain Intensity: 5 Cough: Productive Associated Signs & Symptoms: Positive: Dysphagia Related History: Seasonal Allergies - Epiglottits Risk Factors Epiglottis Risk Factors: Negative - Allergies/Home Medications Allergies/Adverse Reactions: Allergies Allergy/AdvReac Type Severity Reaction Status Date / Time erythromycin base Allergy Nausea And Verified 02/10/18 15:45 Vomiting meperidine [From Demerol] Allergy Itching Verified 02/10/18 15:45 nitroglycerin Allergy Swelling Verified 02/10/18 15:45 Of Face,Lips,& Throat Home Medications: Home Medications Ezetimibe 10 mg PO DAILY 02/10/18 [History Confirmed 02/10/18] PMH/Surg Hx/FS Hx/Imm Hx Previously Healthy: Yes - Surgical History Surgical History: Yes Surgery Procedure, Year, and Place: hysterectomy [id number]. carpel tunnel surgery in R wrist 1994, appendectomy 1979,. bunionectomy [place] FOOT [place]. RIGHT KNEE REPLACEMENT. left thumb trigger finger releasE AND glumose tumor removed LEFT ring finger 2009-[facility] [place]. right total knee replacement 12/26/2014. right hip replacement - Family History Known Family History: Positive: Cardiac Disease, Diabetes - Social History Occupation: Employed Full-time Lives: With Family Alcohol Use: Rare Alcohol Amount: 3 per year Substance Use Type: None Smoking Status (MU): Light Every Day Tobacco Smoker Amount Used/How Often: 5-6 CIG DAILY Have You Smoked in the Last Year: Yes When Did the Patient Quit Smoking/Using Tobacco: QUIT FOR 10 YEARS AND RECENTLY STARTED - Immunization History Most Recent Influenza Vaccination: 1061-6976 Most Recent Tetanus Shot: 2011 Most Recent Pneumonia Vaccination: 3 YEARS AGO Review of Systems Constitutional: Fatigue Skin: Negative Eyes: Negative ENT: Sore Throat Respiratory: Cough Cardiovascular: Negative Gastrointestinal: Negative Genitourinary: Negative Motor: Negative Neurovascular: Negative Musculoskeletal: Negative Neurological: Negative Psychological: Negative Is Patient Immunocompromised?: No All Other Systems Reviewed And Are Negative: Yes Physical Exam Triage Information Reviewed: Yes Appearance: Well-Appearing Vital Signs: Initial Vital Signs Temp 98.4 F 02/10/18 15:33 Pulse 81 02/10/18 15:33 Resp 19 02/10/18 15:33 BP 132/77 02/10/18 15:33 Pulse Ox 99 02/10/18 15:33 Vital Signs Reviewed: Yes Eye Exam: Normal ENT: Positive: Pharyngeal erythema Dental Exam: Normal Neck exam: Normal Respiratory Exam: Normal Cardiovascular Exam: Normal Musculoskeletal Exam: Normal Neurological Exam: Normal Psychological Exam: Normal Skin Exam: Normal Diagnostics - Laboratory Diagnostic Studies Completed/Ordered: rapid strep: negative Throat Pain/Nasal Course/Dx - Differential Dx/Diagnosis Differential Diagnosis/HQI/PQRI: Pharyngitis, Tonsillitis, URI Provider Diagnoses: URI. pharyngitis Discharge - Sign-Out/Discharge Documenting (check all that apply): Patient Departure - Discharge Plan Condition: Stable Disposition: HOME Patient Education Materials: Pharyngitis (ED), Upper Respiratory Infection (ED) Referrals: Casey Baum MD [Primary Care Provider] - If Needed - Billing Disposition and Condition Condition: STABLE Disposition: Home
== END 2018-02-10 16:55 | disposition home or self-care (01) ==
LOC: UCCORT 15:15
DX: J02.9 Acute pharyngitis, unspecified (principal); Z88.1 Allergy status to other antibiotic agents; Z88.5 Allergy status to narcotic agent; Z88.8 Allergy status to other drugs, medicaments and biological substances; Z96.651 Presence of right artificial knee joint; Z96.641 Presence of right artificial hip joint; F17.210 Nicotine dependence, cigarettes, uncomplicated
CPT/HCPCS: 87651; 99211; G0463

== ENCOUNTER 2018-05-06 10:08 | Emergency (ER) | payer BC ==
[2018-05-06 12:21] VITALS: BP 157/72
--- NOTE | 2018-05-06 12:44 | UC ---
Hip/Pelvis Pain - HPI Summary HPI Summary: The patient is a 67-year-old female with the onset of atraumatic left hip pain yesterday. The pain is located at the lateral hip. It is worse with weightbearing. Has been no injury. Denies any back pain. She has had a history of her right hip replacement. The pain in her left hip occasionally radiates down the left lateral aspect of her leg. No relief with Naprosyn and tramadol. - History Of Current Complaint Chief Complaint: UCLowerExtremity Stated Complaint: LEFT HIP PAIN Time Seen by Provider: 05/06/18 12:24 Hx Obtained From: Patient Hx Last Menstrual Period: in 30s Onset/Duration: Gradual Onset, Lasting Hours Timing: Constant Severity Initially: Severe Severity Currently: Severe Pain Intensity: 8 Pain Scale Used: 0-10 Numeric Character Of Pain: Sharp, Aching, Throbbing, Spasmodic Aggravating Factor(s): Movement, Weight Bearing Alleviating Factor(s): Rest - Allergies/Home Medications Allergies/Adverse Reactions: Allergies Allergy/AdvReac Type Severity Reaction Status Date / Time meperidine [From Demerol] Allergy Itchy Rash Verified 05/06/18 12:16 nitroglycerin Allergy Anaphylatic Verified 05/06/18 12:16 Shock erythromycin base AdvReac GI Upset Verified 05/06/18 12:16 Home Medications: Home Medications Fexofenadine (NF) [Myra 180 (NF)] 180 mg PO DAILY PRN 05/06/18 [History Confirmed 05/06/18] Naproxen TAB* [Naprosyn 250 mg TAB*] 500 mg PO Q12H PRN 05/06/18 [History Confirmed 05/06/18] Omeprazole CAP* [Prilosec CAP* 20 MG] 20 mg PO BID PRN 05/06/18 [History Confirmed 05/06/18] PMH/Surg Hx/FS Hx/Imm Hx Previously Healthy: Yes Cardiovascular History: Hypertension - Surgical History Surgical History: Yes Surgery Procedure, Year, and Place: hysterectomy [id number]. carpel tunnel surgery in R wrist 1994, appendectomy 1979,. bunionectomy 1981 LEFT FOOT -[facility]. RIGHT KNEE REPLACEMENT. left thumb trigger finger releasE AND glumose tumor removed LEFT ring finger 2009-[facility] [place]. right total knee replacement 12/26/2014. right hip replacement - Family History Known Family History: Positive: Cardiac Disease, Diabetes - Social History Alcohol Use: Rare Alcohol Amount: 3 per year Substance Use Type: None Smoking Status (MU): Light Every Day Tobacco Smoker Type: Cigarettes Amount Used/How Often: 1/4 PPD Have You Smoked in the Last Year: Yes When Did the Patient Quit Smoking/Using Tobacco: QUIT FOR 10 YEARS AND RECENTLY STARTED - Immunization History Most Recent Influenza Vaccination: [id number] Most Recent Tetanus Shot: 2011 Most Recent Pneumonia Vaccination: 3 YEARS AGO Review of Systems Constitutional: Negative Skin: Negative Eyes: Negative ENT: Negative Respiratory: Negative Cardiovascular: Negative Gastrointestinal: Negative Genitourinary: Negative Motor: Negative Neurovascular: Negative Musculoskeletal: Arthralgia Neurological: Negative Psychological: Negative Is Patient Immunocompromised?: No All Other Systems Reviewed And Are Negative: Yes Physical Exam Triage Information Reviewed: Yes Appearance: Well-Appearing, Well-Nourished, Pain Distress - slow antalgic gait Vital Signs: Initial Vital Signs Temp 98.2 F 05/06/18 12:13 Pulse 74 05/06/18 12:13 Resp 16 05/06/18 12:13 BP 157/72 05/06/18 12:13 Pulse Ox 97 05/06/18 12:13 Vital Signs Reviewed: Yes ENT: Positive: Hearing grossly normal. Negative: Nasal congestion, Nasal drainage, Trismus, Muffled voice, Hoarse voice Neck: Positive: Supple, Nontender Respiratory: Positive: Lungs clear, Normal breath sounds, No respiratory distress, No accessory muscle use Cardiovascular: Positive: RRR, No Murmur Musculoskeletal: Positive: Other: - tender over great troch (L), pain with ext rotation Neurological: Positive: Alert Psychological Exam: Normal Skin Exam: Normal Diagnostics - Radiology No standard instances Xray Interpretation: No Acute Changes Radiology Interpretation Completed By: Radiologist Hip Injury Course/Dx - Differential Dx/Diagnosis Provider Diagnoses: left trocanteric bursitis Discharge - Sign-Out/Discharge Documenting (check all that apply): Patient Departure All imaging exams completed and their final reports reviewed: Yes - Discharge Plan Condition: Stable Disposition: HOME Patient Education Materials: Hip Bursitis (ED) Referrals: Jaci Ibarra MD [Medical Doctor] - - Billing Disposition and Condition Condition: STABLE Disposition: Home
--- NOTE | 2018-05-06 13:09 | RAD ---
Indication: Atraumatic LEFT hip pain since yesterday. Comparison: March 18, 2017 Technique: Upright AP pelvis and AP and frog-leg lateral views LEFT hip. Report: Normally located LEFT hip. No radiographic evidence for fracture or stress reaction. Mild osteophytic lipping at the acetabular margin. Negative for significant joint space narrowing. Unremarkable appearance of the prosthetic RIGHT hip in the AP projection. Subchondral sclerosis at the sacroiliac joints secondary to arthropathy. Lumbar sacral spine degenerative spondylosis and facet joint osteoarthritis. Unremarkable soft tissue contours accounting for obese body habitus. IMPRESSION: #. 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 No radiographic evidence for fracture.
== END 2018-05-06 13:33 | disposition home or self-care (01) ==
LOC: UCCORT 10:08
DX: M70.62 Trochanteric bursitis, left hip (principal); Z88.1 Allergy status to other antibiotic agents; Z88.8 Allergy status to other drugs, medicaments and biological substances; I10 Essential (primary) hypertension; F17.210 Nicotine dependence, cigarettes, uncomplicated
CPT/HCPCS: 99211; G0463

== ENCOUNTER 2019-04-25 19:27 | Emergency (ER) | payer BC ==
[2019-04-25 20:38] VITALS: BP 186/89
[2019-04-25] MEDS ORDERED: Nitrofurantoin Macrocrystals* 50 MG CAP PO ONE ×2 (21:05→21:07)
[2019-04-25] MEDS ORDERED: Phenazopyridine TAB* 100 MG PO ONE ×2 (21:06→21:07)
--- NOTE | 2019-04-25 21:09 | UC ---
Complaint Female HPI - HPI Summary HPI Summary: 68-year-old woman comes in with a chief complaint of burning with urination and urgency for 2 days. She does it some suprapubic discomfort right after urination. Has had some low back tenderness. No fevers measured. Patient's had UTIs in the past and states this is what it feels like. - History Of Current Complaint Chief Complaint: UCGU Stated Complaint: URINARY COMPLAINT Time Seen by Provider: 04/25/19 20:56 Hx Last Menstrual Period: in 30s Pain Intensity: 3 - Allergies/Home Medications Allergies/Adverse Reactions: Allergies Allergy/AdvReac Type Severity Reaction Status Date / Time meperidine [From Demerol] Allergy Itchy Rash Verified 04/25/19 20:28 nitroglycerin Allergy Anaphylatic Verified 04/25/19 20:28 Shock erythromycin base AdvReac GI Upset Verified 04/25/19 20:28 PMH/Surg Hx/FS Hx/Imm Hx Previously Healthy: Yes Endocrine History: Diabetes Cardiovascular History: Hypertension Respiratory History: Asthma - Surgical History Surgical History: Yes Surgery Procedure, Year, and Place: hysterectomy [id number]. carpel tunnel surgery in R wrist 1994, appendectomy 1979,. bunionectomy 1982 LEFT FOOT -[facility]. RIGHT KNEE REPLACEMENT. left thumb trigger finger releasE AND glumose tumor removed LEFT ring finger 2009-[facility] [place]. right total knee replacement 12/26/2014. right hip replacement 2015 - Family History Known Family History: Positive: Cardiac Disease, Diabetes - Social History Alcohol Use: Rare Alcohol Amount: 3 per year Substance Use Type: None Smoking Status (MU): Light Every Day Tobacco Smoker Type: Cigarettes Amount Used/How Often: 1/4 PPD Have You Smoked in the Last Year: Yes When Did the Patient Quit Smoking/Using Tobacco: QUIT FOR 10 YEARS AND RECENTLY STARTED - Immunization History Most Recent Influenza Vaccination: [id number] Most Recent Tetanus Shot: 2011 Most Recent Pneumonia Vaccination: 3 YEARS AGO Review of Systems All Other Systems Reviewed And Are Negative: Yes Constitutional: Positive: Other - SEE HPI Skin: Positive: Negative Eyes: Positive: Negative ENT: Positive: Negative Respiratory: Positive: Negative Cardiovascular: Positive: Negative Gastrointestinal: Positive: Other - SEE HPI Genitourinary: Positive: Dysuria, Frequency, Urgency Motor: Positive: Negative Neurovascular: Positive: Negative Musculoskeletal: Positive: Negative Neurological: Positive: Negative Psychological: Positive: Negative Is Patient Immunocompromised?: No Physical Exam Triage Information Reviewed: Yes Appearance: No Pain Distress, Well-Nourished, Ill-Appearing - MILD Vital Signs: Initial Vital Signs Temp 98.9 F 04/25/19 20:28 Pulse 79 04/25/19 20:28 Resp 24 04/25/19 20:28 BP 186/89 04/25/19 20:28 Pulse Ox 96 04/25/19 20:28 Vital Signs Reviewed: Yes Eye Exam: Normal Eyes: Positive: Conjunctiva Clear Neck: Positive: Supple Respiratory: Positive: Lungs clear, Normal breath sounds, No respiratory distress Cardiovascular: Positive: RRR Abdomen Description: Positive: Nontender, Soft, CVA Tenderness (R), CVA Tenderness (L) Musculoskeletal: Positive: Strength Intact, ROM Intact Neurological: Positive: Alert, Muscle Tone Normal Psychological: Positive: Age Appropriate Behavior Skin Exam: Normal Complaint Female Dx - Differential Dx/Diagnosis Provider Diagnosis: UTI (urinary tract infection) Discharge ED - Sign-Out/Discharge Documenting (check all that apply): Patient Departure All imaging exams completed and their final reports reviewed: No Studies - Discharge Plan Condition: Stable Disposition: HOME Prescriptions: Nitrofurantoin Monohyd/M-Cryst [Macrobid 100 mg Capsule] 100 mg PO BID #12 cap Phenazopyridine 200 mg (NF) [Pyridium 200 MG tab *] 200 mg PO TID PRN #6 tab PRN Reason: Pain - Moderate Patient Education Materials: Urinary Tract Infection in Women (ED) Referrals: Casey Baum MD [Primary Care Provider] - Additional Instructions: FOLLOW UP WITH YOUR DOCTOR IF NOT COMPLETELY IMPROVED. GO TO THE EMERGENCY DEPARTMENT IF WORSE; FEVER, YOU FEEL ILL OR ANY QUESTIONS OR CONCERNS. - Billing Disposition and Condition Condition: STABLE Disposition: Home
== END 2019-04-25 21:35 | disposition home or self-care (01) ==
LOC: UCCORT 19:27
DX: N39.0 Urinary tract infection, site not specified (principal); Z98.891 History of uterine scar from previous surgery; Z88.1 Allergy status to other antibiotic agents; E11.9 Type 2 diabetes mellitus without complications; I10 Essential (primary) hypertension; F17.210 Nicotine dependence, cigarettes, uncomplicated
CPT/HCPCS: 81003; 87077; 87086; 87186; 99213; A9270-GY; G0463